=== PATIENT | female | born 1975 | race Caucasian/White ===

== ENCOUNTER 2021-05-25 22:14 | Emergency (ER) | payer OTHER, SELFPAY ==
[~2021-05-25] VITALS: Ht 152.4 cm; Wt 59.0 kg
[~2021-05-25 22:14] MED LIST: LUPIN PO
[2021-05-25 22:40] VITALS: BP_SYST 168
[2021-05-26 00:05] LABS: LIPASE 58 U/L (73-393)
[2021-05-26 00:06] LABS: ALCOHOL, BLOOD < 3 mg/dL (<10)
[2021-05-26 00:11] LABS: BASOPHILS % (AUTO) 0.3 % (0.0-2.0); EOSINOPHILS % (AUTO) 0.3 % (0.0-4.0); HEMATOCRIT 45.1 % (36-48); HEMOGLOBIN 15.4 g/dL (12.0-16.0); LYMPHOCYTES # (AUTO) 1.1 K/uL (1.0-5.5); LYMPHOCYTES % (AUTO) 8.7 % (20.5-51.5); MEAN CORPUSCULAR HEMOGLOBIN 30 pg (27-31); MEAN CORPUSCULAR HGB CONC 34 % (32-36); MEAN CORPUSCULAR VOLUME 88 fL (79.0-98.0); MONOCYTES # (AUTO) 0.5 K/uL (0.0-1.0); MONOCYTES % (AUTO) 4.1 % (1.7-9.3); NEUTROPHILS # (AUTO) 10.8 K/uL (1.8-7.7); NEUTROPHILS % (AUTO) 86.6 % (40.0-70.0); PLATELET COUNT (AUTO) 284 K/uL (130-430); RED BLOOD CELL COUNT(AUTO) 5.11 MIL/uL (4.2-6.2); RED CELL DISTRIBUTION WIDTH 12.8 % (9.0-15.0); WHITE BLOOD COUNT (AUTO) 12.5 K/uL (4.8-10.8)
[2021-05-26 00:12] LABS: PROTHROMBIN TIME 10.8 SECS (9.5-12.5)
[2021-05-26 00:16] LABS: ALBUMIN 4.1 g/dL (3.4-4.8); CALCIUM 9.5 mg/dL (8.4-11.0); CREATININE 0.82 mg/dL (0.55-1.30); POTASSIUM 3.6 mmol/L (3.5-5.1); TOTAL BILIRUBIN 1.4 mg/dL (0.0-1.0)
[2021-05-26] MEDS ORDERED: FAMOTIDINE PF 20 MG/2 ML VIAL IVP ONE (00:45)
[2021-05-26] MEDS ORDERED: NACL 0.9% 1,000 ML IV ONE (00:45)
[2021-05-26] MEDS ORDERED: MORPHINE 4 MG INJ. 4 MG/ML VIAL IVP ONE (00:45)
[2021-05-26] MEDS ORDERED: ONDANSETRON HCL 4 MG/2 ML VIAL IVP ONE ×2 (00:45→03:15)
[2021-05-26] MEDS ORDERED: GLIP-201 PO (00:46)
[2021-05-26] MEDS ORDERED: HYG25 PO (00:46)
[2021-05-26] MEDS ORDERED: OMEG1CAP55 PO (00:46)
[2021-05-26] MEDS ORDERED: POTA20TA83 PO (00:46)
[2021-05-26] MEDS ORDERED: SPIR25TA PO (00:46)
[2021-05-26] MEDS ORDERED: OLME40TA12 PO (00:46)
[2021-05-26] MEDS ORDERED: ALBU8.5H8 INH (00:48)
[2021-05-26] MEDS ORDERED: fentaNYL CITRATE/PF 100 MCG/2 ML AMP IVP ONE (02:45)
[2021-05-26] MEDS ORDERED: fentaNYL CITRATE/PF 100 MCG/2 ML AMP ONE (02:53)
[2021-05-26] MEDS ORDERED: hydrALAZINE HCL 20 MG/ML VIAL IVP ONE (04:00)
[2021-05-26] MEDS ORDERED: ACET1TAB23 PO (04:10)
[2021-05-26] MEDS ORDERED: FAMO-132 PO (04:10)
[2021-05-26] MEDS ORDERED: ONDA-8 TL (04:11)
[2021-05-26 04:28] VITALS: BP_SYST 153
== END 2021-05-26 04:29 | disposition home or self-care (01) ==
LOC: SED 22:14
DX: R10.13 Epigastric pain (principal); R11.10 Vomiting, unspecified; R19.7 Diarrhea, unspecified; Z79.899 Other long term (current) drug therapy; Z20.822 Contact with and (suspected) exposure to COVID-19
CPT/HCPCS: 36415; 80053; 82272; 83690; 84702; 85025; 85610; 85730; 87426; 93005; 96361; 96374; 96375; 96376; 99284; G0482; J2270; J2405; J3010; J3490; J7030; J0360